=== PATIENT | female | born 1990 ===

== ENCOUNTER 2017-11-22 13:04 | Outpatient (CLI) | payer OTHER ==
[2017-11-22 14:10] LABS: #Basophils 0.1 thou/uL (0.0-0.2); #Eosinphils 0.1 thou/uL (0.0-0.7); #Lymphocytes 2.5 thou/uL (1.20-3.40); #Monocytes 0.5 thou/uL (0.11-0.59); #Neutrophils 5.2 thou/uL (1.40-6.50); %Basophils 0.7 % (0.0-1.0); %Eosinophils 0.8 % (0.0-10.0); %Monocytes 5.8 % (0.0-10.0); %Neutrophils 62.8 % (42.0-75.0); Mean Corpuscular HGB CONC 32.9 g/dL (32.0-36.0); Mean Corpuscular Hemoglobin 29.8 pg (27.0-31.0); Mean Corpuscular Volume 90.6 fl (81.0-99.0); Mean Platelet Volume 7.2 fL (7.4-10.4); Platelet Count 312 thou/uL (130-400); RBC Distribution Width 11.8 % (11.5-14.5); Red Blood Cell (RBC) Count 4.36 mill/uL (4.20-5.40); White Blood Cell (WBC) Count 8.2 thou/uL (4.8-10.8)
[2017-11-22 14:51] LABS: Free T4 (Free Thyroxine) 1.07 ng/dL (0.70-1.48); Thyroid Stimulating Hormone 0.7888 uIU/mL (0.35-4.94)
--- NOTE | 2017-11-22 15:57 | RAD ---
2 VIEWS RIGHT FOOT: Date: 11/22/17 HISTORY: Fracture. COMPARISON: None. FINDINGS: Lisfranc alignment is maintained. Joint spaces are preserved. No fracture. No cortical irregularity o r periosteal reaction. There is an internal fixation plate projecting over the distal fibula. IMPRESSION: Unremarkable 2 views right foot. POS: [facility]
--- NOTE | 2017-11-22 15:58 | RAD ---
RIGHT FORELEG RADIOGRAPHS TWO VIEWS: Date: 11-22-17 Provided Clinical History: Fibular fracture. FINDINGS: No comparisons. Lateral sideplate and screw fixation with associated interfragmentary screw noted ass ociated with the distal right fibula. There is no evidence for hardware loosening or migration. There is no evidence for an acute fracture or other acute osseous abnormality. Alignment appears anatomic. Joint spaces appear preserved. IMPRESSION: Post-operative changes of the distal fibula as above. POS: [facility]
--- NOTE | 2017-11-22 16:09 | RAD ---
TWO VIEWS SACRUM AND COCCYX: Date: 11-22-17 Provided Clinical History: Low back pain. FINDINGS: There is no evidence for fracture or other acute osseous abnormality. If there is persistent clinical concern, conservative management and follow up imaging are advised. IMPRESSION: As above. POS: [facility]
[2017-11-24 22:16] LABS: HSV-1 IgG Type Specific <0.91 index (0.00-0.90); HSV-2 IgG Type Specific 4.34 index (0.00-0.90)
== END 2017-11-22 13:05 | disposition home or self-care (01) ==
LOC: RAD 13:04
PROVIDERS: ATTEND Orthopaedic Surgery
DX: S92.901A Unspecified fracture of right foot, initial encounter for closed fracture (principal); S82.401A Unspecified fracture of shaft of right fibula, initial encounter for closed fracture; M54.5 Low back pain; Z98.890 Other specified postprocedural states
CPT/HCPCS: 36415; 72220; 84439; 84443; 84481; 85025; 86694; 86695; 86696